=== PATIENT | male | born 1985 ===

== ENCOUNTER 2022-07-17 16:42 | Emergency (ER) | payer SELFPAY ==
[2022-07-17] MEDS ORDERED: Amoxicillin/Clavulanate K 875-125 MG Tab PO STA (18:23)
[2022-07-17] MEDS ORDERED: oxyCODONE 5 MG Tab PO STA (18:24)
== END 2022-07-17 18:34 | disposition home or self-care (01) ==
LOC: MW.ED 16:42
DX: H66.93 Otitis media, unspecified, bilateral (principal)
CPT/HCPCS: 99282; A9270; 99283